=== PATIENT | female | born 1960 | race Caucasian/White ===

== ENCOUNTER 2017-11-08 22:08 | Emergency (ER) | payer SELFPAY ==
[~2017-11-08] VITALS: Ht 160 cm; Wt 68.2 kg
[2017-11-08 22:23] VITALS: Ht 160 cm; Wt 68.2 kg
[2017-11-08] MEDS ORDERED: LITHIUM CARBON300 MG PO (22:25)
[2017-11-08 23:17] LABS: BASOPHILS 0.6 % (0-2); EOSINOPHILS 3.5 % (0-7); HEMATOCRIT 35.2 % (36.0-48.0); HEMOGLOBIN 11.5 g/dL (12-16); IMMATURE GRANULOCYTES 0.2 % (0-5); LYMPHOCYTES 48.2 % (15-50); MCHC 32.7 g/dL (31.0-37.0); MCV 91.9 fL (80.0-100.0); MEAN PLATELET VOLUME 10.8 fL (7.4-10.4); MONOCYTES 5.6 % (2-11); NEUTROPHILS 41.9 % (40-80); PLATELET COUNT 208 10x3/uL (130-400); RBC 3.83 10x6/uL (4.00-5.40); RDW 13.9 % (11.5-14.5); WBC 5.2 10x3/uL (4.8-10.8)
[2017-11-08 23:34] LABS: ALBUMIN 2.8 g/dL (3.4-5.0); ALKALINE PHOSPHATASE 169 U/L (46-116); ALT (SGPT) 144 U/L (10-68); BILIRUBIN - TOTAL 0.26 mg/dL (0.2-1.3); CALC OSMOLALITY 286 mosm/kg (275-300); CALCIUM 8.4 mg/dL (8.5-10.1); CARBON DIOXIDE 25.3 mmol/L (21.0-32.0); CHLORIDE - SERUM 109 mmol/L (98-107); CREATININE - SERUM 0.6 mg/dL (0.6-1.3); GLUCOSE 118 mg/dL (74-106); POTASSIUM - SERUM 3.6 mmol/L (3.5-5.1); PROTEIN - SERUM 6.1 g/dL (6.4-8.2); SODIUM 144 mmol/L (136-145); UREA NITROGEN 10 mg/dL (7-18); eGFR NON AFRICAN AMERICAN > 90 mL/min (90-120)
[2017-11-08 23:45] LABS: APPEARANCE CLEAR (CLEAR); BILIRUBIN NEGATIVE (NEGATIVE); COLOR YELLOW (YELLOW); GLUCOSE NEGATIVE (NEGATIVE); KETONE NEGATIVE (NEGATIVE); NITRITE NEGATIVE (NEGATIVE); PROTEIN NEGATIVE (NEGATIVE); UROBILINOGEN NORMAL (NORMAL)
[2017-11-08 23:52] LABS: UDS - AMPHET NEGATIVE QUAL (NEGATIVE); UDS - BARB NEGATIVE QUAL (NEGATIVE); UDS - BENZO POSITIVE QUAL (NEGATIVE); UDS - COCAINE NEGATIVE QUAL (NEGATIVE); UDS - OPIATE NEGATIVE QUAL (NEGATIVE); UDS - PCP NEGATIVE QUAL (NEGATIVE); UDS - THC NEGATIVE QUAL (NEGATIVE)
[2017-11-09 06:04] VITALS: BP 136/91
== END 2017-11-09 06:04 | disposition home or self-care (01) ==
LOC: D.ER 22:08
PROVIDERS: Family Medicine
DX: F10.129 Alcohol abuse with intoxication, unspecified (principal); F10.10 Alcohol abuse, uncomplicated